=== PATIENT | female | born 1990 | race Caucasian/White ===

== ENCOUNTER 2018-05-12 14:41 | Emergency (ER) | payer OTHER ==
[~2018-05-12] VITALS: Ht 170.2 cm; Wt 70.3 kg
[2018-05-12] MEDS ORDERED: ORPHENADRINE C100 MG PO (20:58)
[2018-05-12] MEDS ORDERED: KETO10TA2 PO (20:58)
== END 2018-05-12 21:14 | disposition home or self-care (01) ==
LOC: ER 14:41
DX: M25.571 Pain in right ankle and joints of right foot (principal)

== ENCOUNTER 2023-04-13 14:15 | Emergency (ER) | payer OTHER ==
[~2023-04-13] VITALS: Ht 167.6 cm; Wt 85.7 kg
[~2023-04-13 14:15] MED LIST: KETO10TA2 PO; ORPHENADRINE C100 MG PO
[2023-04-13 16:59] LABS: HEMATOCRIT 35.6 % (36.0-45.00); HEMOGLOBIN 12.3 g/dL (12.0-15.00); MEAN CELL VOLUME 89.3 fL (80.00-100.00); MEAN CORPUSCULAR HGB CONC 34.7 g/dl (32.0-36.0); PLATELET COUNT 277 K/uL (150-450); RED BLOOD COUNT 3.98 M/uL (4.00-6.00)
[2023-04-13 17:00] LABS: URINE APPEARANCE Clear; URINE BILIRRUBIN Negative (NEGATIVE); URINE BLOOD Negative; URINE COLOR Yellow; URINE GLUCOSE Negative (NEGATIVE); URINE LEUKOCYTE Trace; URINE NITRATE Negative; URINE PROTEIN Negative (NEGATIVE)
[2023-04-13 17:01] LABS: URINE BACTERIA 895.8 uL (0.0-1933); URINE EPITHELIAL CELLS 40.3 uL (0.0-38.8); URINE RBC 16.3 uL (0.0-20.8); URINE WBC 8.9 uL (0.0-23.2)
[2023-04-13 17:54] LABS: ALKALINE PHOSPHATASE 65 U/L (50-136); ALT/SGPT 36 U/L (12-78); ANION GAP 10 (10.0-20.0); AST/SGOT 21 U/L (15-37); BILIRUBIN TOTAL 0.74 mg/dL (0.3-1.2); BLOOD UREA NITROGEN 14 mg/dL (7-18); BUN CREA RATIO 20 (7.0-25.0); CALCIUM 9.1 mg/dL (8.5-10.1); CARBON DIOXIDE 27 mEq/L (21-32); CHLORIDE 107 mmol/L (98-107); GFR 98.25; GLOBULINA 3.5 G/DL (2.4-3.5); GLUCOSE FASTING 101 mg/dL (65-100); OSMOLALITY SERUM 280 MOSM/KG (275-295); POTASSIUM 4.05 mEq/L (3.5-5.1); SODIUM 140 mmol/L (136-145); TOTAL PROTEIN 7.5 gm/dL (6.4-8.2)
[2023-04-13 17:55] LABS: HCG QUANTITATIVE < 1 mUI/mL (1-3)
== END 2023-04-13 18:33 | disposition home or self-care (01) ==
LOC: ER 14:16
PROVIDERS: General Practice
DX: N30.90 Cystitis, unspecified without hematuria (principal)

== ENCOUNTER 2023-06-17 15:39 | Emergency (ER) | payer OTHER ==
[~2023-06-17] VITALS: Ht 167.6 cm; Wt 86.6 kg
[2023-06-17] MEDS ORDERED: MINOCYCLINE HC100 M1 (16:10)
[2023-06-17] MEDS ORDERED: METOCLOPRAMIDE HCL 5 MG/ML VIAL IV ONE (19:00)
[2023-06-17] MEDS ORDERED: FAMOTIDINE/PF 20 MG/2 ML VIAL IV ONE (19:00)
[2023-06-17 20:17] LABS: BILIRUBIN TOTAL 0.98 mg/dL (0.3-1.2); CALCIUM 9.6 mg/dL (8.5-10.1); CREATININE SERUM 0.68 mg/dL (0.55-1.02); GFR 100.92; GLOBULINA 4.1 G/DL (2.4-3.5); POTASSIUM 3.88 mEq/L (3.5-5.1); TOTAL PROTEIN 8.1 gm/dL (6.4-8.2)
== END 2023-06-17 21:12 | disposition home or self-care (01) ==
LOC: ER 15:39
PROVIDERS: Emergency Medicine
DX: R10.13 Epigastric pain (principal); R07.89 Other chest pain

== ENCOUNTER 2024-09-26 13:20 | Emergency (ER) | payer OTHER ==
[~2024-09-26] VITALS: Ht 167.6 cm; Wt 88.5 kg
[~2024-09-26 13:20] MED LIST changes: +MINOCYCLINE HC100 M1
[2024-09-26] MEDS ORDERED: ONDANSETRON HCL 2 MG/ML VIAL IV ONE (13:45)
[2024-09-26] MEDS ORDERED: FAMOTIDINE/PF 20 MG/2 ML VIAL IV PUSH ONE (13:45)
[2024-09-26] MEDS ORDERED: 0.9 % SODIUM CHLORIDE 500 ML IV ONE (13:45)
[2024-09-26] MEDS ORDERED: KETOROLAC TROMETHAMINE 60 MG VIAL IM ONE (13:45)
[2024-09-26 15:33] LABS: BASO % 0.3 % (0.1-1.2); EOS # 0.02 (0.04-0.54); EOS % 0.2 % (0.7-7.0); HEMATOCRIT 36.1 % (34.1-44.9); HEMOGLOBIN 12.5 g/dL (11.2-15.7); LYMPH # 1.09 (1.18-3.74); LYMPH % 8.4 % (19.3-53.1); MEAN CORPUSCULAR HEMOGLOBIN 30.3 pg (25.6-32.2); MONO # 0.21 (0.24-0.82); MONO % 1.6 % (4.7-12.5); NEUT % 89.1 % (34.0-71.1); PLATELET COUNT 277 K/uL (163-369); RED BLOOD COUNT 4.12 M/uL (3.93-5.22)
[2024-09-26 15:36] LABS: PH,URINE 8.5 (5.0-8.0); URINE APPEARANCE Clear; URINE BILIRRUBIN Negative (NEGATIVE); URINE BLOOD Negative; URINE COLOR Yellow; URINE GLUCOSE Negative (NEGATIVE); URINE KETONE Negative (NEGATIVE); URINE LEUKOCYTE Negative; URINE NITRATE Negative; URINE PROTEIN Trace (NEGATIVE); URINE UROBILINOGEN 0.2 E.U./dl
[2024-09-26 15:41] LABS: URINE BACTERIA 26.9 uL (0.0-1933); URINE EPITHELIAL CELLS 1.7 uL (0.0-38.8); URINE WBC 2.6 uL (0.0-23.2)
[2024-09-26 15:48] LABS: URINE CAST 0.14 uL (0.0-1.40)
[2024-09-26 15:52] LABS: CALCIUM 9.8 mg/dL (8.5-10.1); CREATININE SERUM 0.64 mg/dL (0.55-1.02); GFR 107.54; POTASSIUM 4.04 mEq/L (3.5-5.1)
[2024-09-26] MEDS ORDERED: ACETAMINOPHEN500 M1 PO (17:28)
[2024-09-26] MEDS ORDERED: ZITHROMAX TRI-500 MG PO (17:28)
[2024-09-26] MEDS ORDERED: GILTUSS COUGH-118 M1 PO (17:28)
== END 2024-09-26 18:01 | disposition home or self-care (01) ==
LOC: ER 13:20
PROVIDERS: General Practice
DX: J06.9 Acute upper respiratory infection, unspecified (principal); R11.0 Nausea; R50.9 Fever, unspecified; Z88.6 Allergy status to analgesic agent